=== PATIENT | female | born 1995 | race Two or more races ===

== ENCOUNTER 2024-04-18 19:28 | Emergency (ER) | payer MEDICAID, SELFPAY ==
[2024-04-18 19:29] VITALS: BMI 26.0
[2024-04-18 20:15] VITALS: BP 115/75; PULSE 71; RESP 18; TEMP 37.1; O2SAT 97
--- NOTE | 2024-04-18 20:21 | XR_ITS ---
Examination: CT soft tissue neck, without intravenous contrast. 2-D coronal reconstructions. 2-D sagittal reconstructions. Date and time of exam :April 28, 2024 2033 hrs. Indications: Palpable lump left neck note is beginning 3 days ago. CTDI: vol (mGy):12.4 DLP: (mGycm):281 Technique: 1.25 mm axial sections of the neck of the obtained. Coronal and sagittal reconstructions have been obtained. Low dose protocols were performed. One or more of the following dose reduction techniques were used; automated exposure control, adjustment of the mA and/or KV according to patient size, use of iterative reconstruction technique. Findings: Maxillary antra are clear Symmetrical nasopharynx oropharynx Symmetrical submandibular glands 12 mm lymph node anterior to the left parotid gland 8mm nodule in the left parotid gland The larynx appears normal Impression: 12 mm lymph node anterior to the left parotid gland 8mm solid nodule in the left parotid gland, clinical correlation advised Recommend ultrasound soft tissue follow-up of any palpable left neck mass
--- NOTE | 2024-04-18 21:35 | XR_ITS ---
Examination: Ultrasound soft tissue left neck Technique: Multiple high-resolution grayscale sonographic images soft tissue left leg Indications: Palpable left neck mass noted beginning 3 days ago Findings: Small submental lymph nodes, on the right side 15 mm on the left side 10 mm Small lymph nodes anterior to the right parotid gland and anterior to left parotid gland the largest 5 mm Impression: Nonspecific lymphadenopathy as above, recommend 3 month follow-up ultrasound soft tissue neck as clinically warranted
[2024-04-18 21:45] LABS: Basophils % (Auto) 1 % (0-2.5); Eosinophils # (Auto) 0.1 Thou/mm3 (0.0-0.5); Eosinophils % (Auto) 1 % (0-10); Hematocrit 40.1 % (36.0-46.0); Hemoglobin 13.4 g/dL (12.0-16.0); Immature Granulocytes % (Auto) 0 % (0-0); Immature Granulocytes Auto 0.02 Thou/mm3 (0.00-0.00); Lymphocytes # (Auto) 2.3 Thou/mm3 (1.0-4.8); Lymphocytes % (Auto) 26 % (10-50); Mean Corpuscular HGB Conc 33.4 g/dl (31.0-37.0); Mean Corpuscular Hemoglobin 28.8 pg (25.0-35.0); Mean Corpuscular Volume 86 fL (80-100); Monocytes # (Auto) 0.4 Thou/mm3 (0.0-0.8); Monocytes % (Auto) 4 % (0-12); Neutrophils % (Auto) 68 % (37-80); Nucleated Red Blood Cell % 0 /100 WBC (0); Platelet Count 242 Thou/mm3 (140-440); RDW Standard Deviation 40.3 fL (36.4-46.3); Red Blood Count 4.66 Miln/mm3 (4.00-5.20); White Blood Count 8.9 Thou/mm3 (3.6-11.0)
[2024-04-18 21:52] LABS: Alanine Aminotransferase 19 U/L (10-49); Albumin, Serum 4.9 gm/dL (3.5-5.0); Albumin/Globulin Ratio 1.8 (1.2-2.2); Alkaline Phosphatase 99 U/L (46-116); Anion Gap 7 (7-16); Aspartate Amino Transferase 20 U/L (0-34); BUN/Creatinine Ratio 17 Ratio (12-20); Bilirubin,Total 0.3 mg/dL (0.3-1.2); Blood Urea Nitrogen 12 mg/dL (9-23); Calcium 9.9 mg/dL (8.3-10.6); Calcium (Corrected) 9.9 mg/dL (8.5-10.1); Chloride 107 mMol/L (98-107); Creatinine (Component) 0.7 mg/dL (0.6-1.3); Estimated Creatinine Clearance 100.6 mL/min (>60); Globulin 2.8 gm/dL (2.3-3.5); Glucose 113 mg/dL (74-106); Osmolality,Calculated 280 (275-295); Sodium 140 mMol/L (136-145); Thyroid Stimulating Hormone 1.25 uIU/mL (0.55-4.78); Total Protein 7.7 gm/dL (5.7-8.2); eGFR > 60 See Note
--- NOTE | 2024-04-18 21:52 | PD.EDNECK ---
ED Neck Injury Pain RME/HPI General Chief Complaint: General Adult/Misc Complain Stated Complaint: lump in L neck Time Seen by Provider: 04/18/24 20:21 Arrival date/time: 04/18/24 19:28 28F with no significant PMH presents to ED with 3 days of lump under L neck. Patient denies URI symptoms and sore throat, as well as fevers/chills. No discharge from mouth. Patient is up-to-date on vaccinations. Limitations: no limitations Related Data Previous Rx's ?Medication ?Instructions ?Recorded Hydrocodone/Acetaminophen * (NORCO 1 - 2 tab PO Q4H PRN PAIN #16 tabs 09/04/16 5/325 *) omeprazole 20 mg capsule,delayed 20 mg PO QDAY ##30 09/04/16 release Allergies Allergy/AdvReac Type Severity Reaction Status Date / Time codeine Allergy Unknown UNKNOWN Unverified 04/18/24 19:31 propoxyphene Allergy Unknown UNKNOWN Unverified 04/18/24 19:31 Review of Systems Review of Systems Systems Reviewed: All systems reviewed, normal except as documented Constitutional Constitutional: Reports system reviewed and no additional complaints, except as documented, Denies fever(s) and Denies headache(s) ENT Ears, Nose, Mouth, and Throat: Reports as per HPI, Denies disequilibrium, Denies headache(s) and Reports throat swelling Cardiovascular Cardiovascular: Reports system reviewed and no additional complaints, except as documented, Denies chest pain and Denies dyspnea Respiratory Respiratory: Reports system reviewed and no additional complaints, except as documented, Denies cough and Denies dyspnea Gastrointestinal Gastrointestinal: Reports system reviewed and no additional complaints, except as documented, Denies abdominal pain, Denies nausea and Denies vomiting Neurologic Neurologic: Reports system reviewed and no additional complaints, except as documented, Denies confusion, Denies disequilibrium and Denies headache(s) Psychiatric Psychiatric: Denies confusion Allergic/Immunologic Allergic/Immunologic: Reports throat swelling Past Medical History Social History SMOKING STATUS: Never smoker ED Exam General Limitations: Present no limitations General appearance: Present alert and in no apparent distress Head Head exam: Present atraumatic Eye Eye exam: Present normal appearance, PERRL and EOMI ENT ENT exam: Present normal exam, normal oropharynx and mucous membranes moist Neck Neck exam: Present full ROM, trachea midline and lymphadenopathy (L anterior) Chest Chest inspection: Present normal inspection and symmetric chest wall rise Respiratory Respiratory exam: Present normal lung sounds bilaterally Cardiovascular Cardiovascular exam: Present regular rate, normal rhythm and normal heart sounds Abdominal Exam Abdominal exam: Present soft and normal bowel sounds Extremities Exam Extremities exam: Present normal inspection and full ROM Back Exam Back exam: Present normal inspection and full ROM Neurological Exam Neurological exam: Present alert, oriented X3 and CN II-XII intact Psychiatric Psychiatric exam: Present normal affect and normal mood Skin Skin exam: Present warm, dry, intact and normal color Course Quality Measures none Orders Category Date Time Status CT soft tissue neck wo con Stat Exams 04/18/24 20:21 Completed US soft tissue head neck Stat Exams 04/18/24 21:35 Completed CBC Stat Lab 04/18/24 21:21 Completed CMP [Comprehensive Metabolic Panel] Stat Lab 04/18/24 21:21 Completed TSH [Thyroid Stimulating Hormone] Stat Lab 04/18/24 21:21 Completed Vital Signs Vital signs: Vital Signs Temperature 98.7 F 04/18/24 20:15 Pulse Rate 71 04/18/24 20:15 Respiratory Rate 18 04/18/24 20:15 Blood Pressure 115/75 04/18/24 20:15 Pulse Oximetry (%) 97 04/18/24 20:15 Oxygen Delivery Method Room Air 04/18/24 20:15 O2 at 97% on RA and WNLs Neck Pain MDM Narrative MDM Narrative:: 28F with no significant PMH presents to ED with 3 days of lump under L neck. Patient denies URI symptoms and sore throat, as well as fevers/chills. No discharge from mouth. Patient is up-to-date on vaccinations. Physical exam reveals mild L neck swelling and tenderness, but no redness. Clear ENT. Patient is afebrile, calm, and alert. US reveals non-specific lyphadenopathy. CT shows parotid lymphadenopathy. No leukocytosis. CMP unremarkable. TSH normal. Counseled to follow-up with PCP. Patient data External records reviewed:: [facility] previous records Clinical information provided by:: patient Social determinants that could affect healthcare access:: none Patient has the following chronic illnesses:: none How is presenting disease/condition affected by chronic disease/condition?: no chronic disease Evaluation data The following diagnostics were reviewed and interpreted by me:: lab results and radiology exam(s) Lab and/or radiology exams considered but not ordered:: ordered Interpretation Summary: above Medications / Prescriptions Medications or Prescriptions considered but not ordered:: not ordered Medication administrations:: n/a Consultations Consultation(s) initiated? (list below): No Diagnosis Neck Differential Diagnosis: disc disorder of cervical region, whiplash injury to neck, closed subluxation of cervical spine, fracture of cervical spine without lesion of spinal cord, cervical radiculopathy, vertebral artery dissection, torticollis, cervical spondylosis, strain of neck muscle and other (cervical/parotid lymphadenopathy) Most likely diagnosis given after review of the tests above:: parotid lymphadenopathy Admission Indicated Admission indicated?: not indicated Admission Request Was there a request for admission?: No Disposition Plan Disposition Plan: Discharge Discharge Attestation Discharge Attestation: The patient and all family members were given an opportunity to ask questions and understood the discharge instructions. Discharge instructions specifically effects, indications for sooner follow up or return to the emergency department, and the expected course of current diagnosis. Patient condition: Stable Discharge Plan Plan Patient Disposition: HOME (Self Care) Disposition Comment: Stable Prescriptions/Referrals Prescriptions/Med Rec: No Action omeprazole 20 MG capsule,delayed release(DR/EC) 20 mg PO QDAY Qty: 30 0RF Hydrocodone/Acetaminophen * (NORCO 5/325 *) 1 TAB tablet 1 - 2 tab PO Q4H PRN (Reason: PAIN) Qty: 16 0RF Rx Instructions: FOR PAIN Referrals: No Primary/Family,Physician [Primary Care Provider] - In 1 week Problem List Clinical Impression: Parotid lymphadenopathy Patient/Caregiver Discharge Instructions Education Materials: Lymphadenopathy Additional Instructions: Please follow-up with PCP within 24-48 hours and return immediately if symptoms worsen. Print Language: Turkish Stand Alone Forms: Patient Portal Info Letter TAMIKO/[employer] Supervising Physician TAMIKO/KRIS Supervising Physician: Dr. Blair
--- NOTE | 2024-04-18 23:08 | PC.NURSE ---
Pt to US from lobby at this time.
== END 2024-04-19 01:04 | disposition home or self-care (01) ==
PROVIDERS: Physician Assistant; Emergency Provider Emergency Medicine
DX: R59.1 Generalized enlarged lymph nodes (principal)
CPT/HCPCS: 36415; 70490; 76536; 80053; 84443; 85025; 99284